=== PATIENT | female | born 1945 | race Caucasian/White ===

== ENCOUNTER → 2020-11-22 | Day surgery (SDC) | payer MEDICARE ==
[2020-11-17 14:35] LABS: BASOPHILS % 0.3 % (0.0-1.0); EOSINOPHILS # (AUTO) 0.2 (0.0-0.4); EOSINOPHILS % 2.6 % (0.0-6.0); HEMATOCRIT 29.6 % (34.2-44.1); HEMOGLOBIN 9.2 g/dL (12.0-16.0); LYMPHOCYTES % 33.7 % (18.0-39.1); MEAN CORPUSCULAR HEMOGLOBIN 29.1 pg (28-32); MEAN CORPUSCULAR HGB CONC 31.1 g/dL (31-35); MEAN CORPUSCULAR VOLUME 93.7 fL (81-99); MONOCYTES # (AUTO) 0.8 (0.2-0.8); MONOCYTES % 14.4 % (4.4-11.3); NEUTROPHILS # (AUTO) 2.8 (2.1-6.9); NEUTROPHILS % 48.7 % (38.7-80.0); PLATELET COUNT 215 x10e3/uL (140-360); RED BLOOD COUNT 3.16 x10e6/uL (3.6-5.1); RED CELL DISTRIBUTION WIDTH 13.6 % (11.7-14.4)
[~2020-11-22] MED LIST: BACTRIM DS TAB1 EACH PO; BALANCED SALT SOLN (OPTH) 15 ML BTL IO ONE; CITALOPRAM HBR20 MG PO; CYCLOPENTOLATE HCL 1% OPTH SOLN 2ML BTL ONE; DAPSONE25 MG PO; EPINEPHRINE HCL 1:1000 1ML 1 MG/ML AMP ONE; LEVOTHYROXINE50 MCG PO; LIDOCAINE HCL-PF 4% 40 MG/1 ML 5ML AMP ONE; MAGNESIUM OXID400 MG PO; METOCLOPRAM5 MG/5 ML PO; METOPROLOL TART25 MG PO; MOXIFLOXACIN HCL(OPTH) 3 ML BTL ONE; MULTI-VITAMIN1 EACH PO; NEURONTIN100 MG PO; OYSCO 500+D TA1 EACH PO; PHENYLEPHRINE HCL 2 ML DROPS ONE; POTASSIUM99 M1 PO; POVIDONE IODINE 5% (OPTH) 30 ML BTL ONE; PRAVACHOL40 MG PO; PREDNISONE5 MG PO; PROTONIX20 MG PO; RAPAMUNE1 MG PO; TACROLIMUS1 MG PO; TRAZODONE HCL50 MG PO; TROPICAMIDE 1% OPTH SOLN 3ML ONE; ULTRAM50 MG PO; VALCYTE450 MG PO; ZITHROMAX250 MG PO
[2020-11-22 08:25] VITALS: BP 149/73
== END | disposition home or self-care (01) ==
LOC: OR 05:32
PROVIDERS: ATTEND Ophthalmology
DX: H25.11 Age-related nuclear cataract, right eye (principal); I10 Essential (primary) hypertension; Z94.2 Lung transplant status; J44.9 Chronic obstructive pulmonary disease, unspecified; Z99.81 Dependence on supplemental oxygen; Z01.810 Encounter for preprocedural cardiovascular examination; Z01.812 Encounter for preprocedural laboratory examination; Z20.822 Contact with and (suspected) exposure to COVID-19; Z87.891 Personal history of nicotine dependence
CPT/HCPCS: 36415; 66982; 85025; 93005; J0171; U0002; V2632

== ENCOUNTER → 2021-01-27 | Day surgery (SDC) | payer MEDICARE ==
[2021-01-24 13:54] LABS: BASOPHILS % 0.2 % (0.0-1.0); EOSINOPHILS # (AUTO) 0.2 (0.0-0.4); EOSINOPHILS % 1.8 % (0.0-6.0); HEMATOCRIT 32.4 % (34.2-44.1); HEMOGLOBIN 9.8 g/dL (12.0-16.0); LYMPHOCYTES # (AUTO) 1.8 (1.0-3.2); LYMPHOCYTES % 20.7 % (18.0-39.1); MEAN CORPUSCULAR HEMOGLOBIN 27.6 pg (28-32); MEAN CORPUSCULAR HGB CONC 30.2 g/dL (31-35); MEAN CORPUSCULAR VOLUME 91.3 fL (81-99); MONOCYTES # (AUTO) 1.1 (0.2-0.8); MONOCYTES % 12.3 % (4.4-11.3); NEUTROPHILS # (AUTO) 5.8 (2.1-6.9); NEUTROPHILS % 64.6 % (38.7-80.0); PLATELET COUNT 275 x10e3/uL (140-360); RED BLOOD COUNT 3.55 x10e6/uL (3.6-5.1); RED CELL DISTRIBUTION WIDTH 13.2 % (11.7-14.4)
[2021-01-27 15:35] VITALS: BP 159/90
== END | disposition home or self-care (01) ==
LOC: OR 11:58
PROVIDERS: ATTEND Ophthalmology
DX: H25.12 Age-related nuclear cataract, left eye (principal); I10 Essential (primary) hypertension; Z01.812 Encounter for preprocedural laboratory examination; Z20.822 Contact with and (suspected) exposure to COVID-19; E03.9 Hypothyroidism, unspecified; Z94.2 Lung transplant status
CPT/HCPCS: 36415; 66984; 85025; J0171; U0002; V2632